=== PATIENT | female | born 1950 | race Caucasian/White ===

== ENCOUNTER → 2018-06-21 | Day surgery (SDC) | payer OTHER ==
[~2018-06-21] MED LIST: ATOR10TA60 PO; DABI150C PO; DILT180C2 PO; DOFE500C PO; LABETALOL 20 MG/4 ML DISP.SYRIN. IVP ONE; LOSA50TA7 PO; MONT10TA9 PO; PROPOFOL 40 ML IV ONE
--- NOTE | 2018-06-21 10:20 | PDOC1 ---
HISTORY & PHYSICAL H&P Jia Marshall 1950 06/01/2018 09:30 AM 07/26 [employer] [place], [facility] OUR PATIENTS COM[facility] FIRST [address] [place] [address]. [phone] Patient: Jia Marshall Date of : 1950 Date: 06/01/2018 9:30 AM Visit Type: Consult This 68 year old female presents for H/o colorectal polyp. History of Present Illness: 1. H/o colorectal polyp Prior screening: colonoscopy. Risk Factors: h/o colon polyp. Pertinent negatives include abdominal pain, change in bowel habits, change in stool caliber, constipation, decreased appetite, diarrhea, melena, nausea, rectal bleeding, vomiting, weight gain and weight loss. Additional information: No family history of colon cancer, No family history of Crohn's/colitis, No NSAID/ ASA use and Last colonoscopy 2011. INTAKE COMMENTS: Intake Comments: new pt follow up PAST MEDICAL/SURGICAL HISTORY (Detailed) Disease/disorder Onset Date Management Date Comments Colonic polyps 07/30/2011 colonoscopy with biopsy 07/30/2011 Bilateral tubal ligation Allergic rhinitis broken ankle left ankle repair Family History (Detailed) Relationship Family Member Name Age at Condition Onset Age Cause of Father Y cancer, esophagus (?) Y Father Y N Paternal grandmother N Cancer, breast N Social History: (Detailed) Preferred language is Mauritian. 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 2 drinks consumed monthly. CAFFEINE The patient uses caffeine: coffee - 1 cup a day. EXPERIENCE Patient has no experience. Medications (active prior to today) Medication Name Sig Description Start Date Stop Date Refilled Rx Elsewhere Clarinex-D 24 HOUR 5 mg-240 mg Tab take 1 tablet by oral route every day // Y losartan 50 mg tablet take 1 tablet by oral route every day // Y atorvastatin 10 mg tablet take 1 tablet by oral route every day // Y dofetilide 500 mcg capsule take 1 capsule by oral route 2 times every day // Y Pradaxa 150 mg capsule take 1 capsule by oral route 2 times every day // Y montelukast 10 mg tablet take 1 tablet by oral route every day in the evening / / Y Medications (Added, Continued or Stopped today) Start Date Medication Directions PRN Status PRN Reason Instruction Stop Date atorvastatin 10 mg tablet take 1 tablet by oral route every day N Clarinex-D 24 HOUR 5 mg-240 mg Tab take 1 tablet by oral route every day N dofetilide 500 mcg capsule take 1 capsule by oral route 2 times every day N losartan 50 mg tablet take 1 tablet by oral route every day N montelukast 10 mg tablet take 1 tablet by oral route every day in the evening N Pradaxa 150 mg capsule take 1 capsule by oral route 2 times every day N Allergies: Ingredient Reaction (Severity) Medication Name Comment ASPIRIN SULFA (SULFONAMIDE ANTIBIOTICS) Review of Systems System Neg/Pos Details Constitutional Negative Chills, Fever, Malaise, Weight gain and Weight loss. ENMT Negative Sore throat. Eyes Negative Double vision. Respiratory Negative Dyspnea and Wheezing. Cardio Negative Chest pain and Irregular heartbeat/palpitations. GI Positive See HPI. GI Negative Abdominal pain, Change in bowel habits, Change in stool caliber, Constipation, Decreased appetite, Diarrhea, Melena, Nausea, See HPI, Rectal bleeding and Vomiting. Negative Dysuria and Hematuria. Endocrine Negative Cold intolerance and Heat intolerance. Psych Negative Anxiety. Integumentary Negative Hives and Rash. MS Negative Joint pain. Otoniel/Lymph Negative Easy bleeding and Easy bruising. Allergic/Immuno Negative Food allergies. Vital Signs Time BP mm/Hg Pulse /min Resp /min Temp F Ht ft Ht in Ht cm Wt lb Wt kg BMI kg/ m2 BSA m2 O2 Sat% 9:38 AM 132/80 65 98.1 5.0 4.50 163.83 276.40 125.373 46.71 2.39 95 Measured By Time Measured by 9:38 AM Loly Campos PHYSICAL EXAM: Exam Findings Details Constitutional Normal Well developed. Eyes Normal Conjunctiva - Right: Normal, Left: Normal. Sclera - Right: Normal, Left: Normal. Nasopharynx Normal Lips/teeth/gums - Normal. Neck Exam Normal Inspection - Normal. Thyroid gland - Normal. Respiratory Normal Inspection - Normal. Auscultation - Normal. Cardiovascular Normal Regular rate and rhythm. No murmurs, gallops, or rubs. Abdomen Normal Inspection - Normal. Anterior palpation - No guarding. No abdominal tenderness. No hepatic enlargement. No spleen enlargement. No hernia. No Ascites. Skin Normal Inspection - Normal. Extremity Normal No edema. Psychiatric Normal Orientation - Oriented to time, place, person & situation. Appropriate mood and affect. Assessment/Plan # Detail Type Description 1. Assessment History of colon polyps (Z86.010). Patient Plan schedule colonoscopy at [facility] Provider Plan Following items have been discussed with the patient if applicable. __x_Patient was advised about the liquid diet carefully. ___Diabetic medication: Do not take following medication on the preparation day - ___Insulin: Reduce or eliminate your insulin as follows- _x__Blood thinner: Do not take following blood thinner as follows- Pradax for 3 days before the test. __x_Other medication: Continue all other medication on the day of preparation. ___BP medication: Take following BP meds on the day of the procedure at 5:30 AM. with just a sip of water-but do not drink lot of water because this will delay your procedure for anesthesia related issue.- Plan Orders Further diagnostic evaluations ordered today include(s) Colonoscopy , flexible; diagnostic to be performed today. She is to schedule a follow-up visit with Josemanuel Navarro MD upon completion of work-up. Active Patient Care Team Members Name Contact Agency Type Support Role Relationship Active Date Inactive Date Specialty Rita Clancy Patient provider PCP Document Electronically signed: Josemanuel Navarro MD 06/01/2018 10:10 AM Document generated by: Josemanuel Navarro 06/01/2018 Pete Car MD, Family Practice; Collin Mares MD Internal Medicine; Barber Dee MD, Internal Medicine; Odalis Navarro MD Internal Medicine; Josemanuel Navarro MD, Gastroenterology; Mayo Whitney MD, Rheumatology, Alicja Arreola APRN ------ 06/21/18 Patient seen and examined. No change in H&P. JOSEMANUEL NAVARRO MD Jun 21, 2018 10:20
[2018-06-21 11:18] VITALS: BP 167/68
--- NOTE | 2018-06-22 16:09 | PATHOLOGY ---
[facility] Accession Number: [id number] . 01 Material submitted: . RECTAL SIGMOID POLYP . 01 Clinical history: . Hx of colon polyps . 02 Diagnosis: "Rectal sigmoid polyp", biopsy: - Tubular adenoma; no high grade dysplasia. . (CLW:mml; 06/22/18) [facility]/06/22/2018 . 02 Electronically signed: . Candy Skinner MD, Pathologist NPI- [id number] . 01 Gross description: . Received in formalin labeled "Jia Marshall, rectal sigmoid polyp," are 2 segments of gutierrez soft tissue measuring 1.0 x 0.3 x 0.3 cm in aggregate dimensions and ranging from 0.5 to 0.6 cm in maximum dimension. The specimen is submitted entirely in cassette A1. (TSD; 06/21/2018) TOB/TOB . 02 Pathologist provided ICD-10: D12.8 . 02 CPT . 978185 Specimen Comment: A courtesy copy of this report has been sent to Specimen Comment: [phone], . Specimen Comment: Report sent to / DR LING Specimen Comment: A duplicate report has been generated due to demographic updates. Performed at: 01 [facility] [address], [place], [place] [id number] MD Willard Hooper MD Phone: [phone] Performed at: 02 [facility] [address] [place], [place] [id number] MD Kenton Weeks MD Phone: [phone]
== END | disposition home or self-care (01) ==
LOC: ENDOS 09:57
PROVIDERS: ATTEND Internal Medicine Gastroenterology
DX: Z12.11 Encounter for screening for malignant neoplasm of colon (principal); D12.7 Benign neoplasm of rectosigmoid junction; K57.30 Diverticulosis of large intestine without perforation or abscess without bleeding; Z86.010 Personal history of colon polyps; Z98.890 Other specified postprocedural states; Z98.51 Tubal ligation status; Z79.899 Other long term (current) drug therapy; Z72.89 Other problems related to lifestyle; Z88.2 Allergy status to sulfonamides; Z88.6 Allergy status to analgesic agent
CPT/HCPCS: 45385; 88305; J2704; J3490; 45380